=== PATIENT | male | born 1960 | race Caucasian/White ===

== ENCOUNTER → 2020-12-30 07:03 | Outpatient (CLI) | payer OTHER ==
[~2020-12-30 07:03] MED LIST: HYZAAR 50-12.1 UDTAB; LIPITOR40 MG
== END | disposition home or self-care (01) ==
LOC: LAB 07:03
DX: I10 Essential (primary) hypertension (principal)

== ENCOUNTER 2021-01-02 08:00 | Outpatient (CLI) | payer OTHER | END 2021-01-02 08:30 | disposition home or self-care (01) | LOC: PPH VACUNA 08:00 | PROVIDERS: ATTEND Emergency Medicine Pediatric Emergency Medicine | DX: Z23 Encounter for immunization (principal) ==

== ENCOUNTER 2021-07-13 08:00 | Outpatient (CLI) | payer OTHER | END 2021-07-13 08:30 | disposition home or self-care (01) | LOC: PPH VACUNA 08:00 | PROVIDERS: ATTEND Emergency Medicine Pediatric Emergency Medicine | DX: Z23 Encounter for immunization (principal) ==

== ENCOUNTER 2023-02-01 06:39 | Outpatient (CLI) | payer OTHER ==
[2023-02-01 07:23] LABS: CREATININE SERUM 1.21 mg/dL (0.70-1.30)
== END 2023-02-01 06:40 | disposition home or self-care (01) ==
LOC: LAB 06:39
PROVIDERS: ATTEND Urology
DX: R31.0 Gross hematuria (principal)

== ENCOUNTER 2023-02-01 07:03 | Outpatient (CLI) | payer OTHER | END 2023-02-01 07:08 | disposition home or self-care (01) | LOC: TOM 07:03 | PROVIDERS: ATTEND Urology | DX: R31.0 Gross hematuria (principal); N20.0 Calculus of kidney ==

== ENCOUNTER 2023-03-13 21:11 | Emergency (ER) | payer OTHER ==
[~2023-03-13] VITALS: Ht 167.6 cm; Wt 86.2 kg
[2023-03-13] MEDS ORDERED: ZESTRIL20 MG PO (21:22)
[2023-03-14 00:20] LABS: URINE APPEARANCE Clear; URINE BILIRRUBIN Negative (NEGATIVE); URINE BLOOD Negative; URINE COLOR Yellow; URINE GLUCOSE Negative (NEGATIVE); URINE LEUKOCYTE Trace; URINE NITRATE Negative; URINE PROTEIN Negative (NEGATIVE)
[2023-03-14 00:21] LABS: HEMATOCRIT 45.5 % (39.0-48.0); HEMOGLOBIN 15.6 g/dL (13-16.00); MEAN CELL VOLUME 87.8 fL (80.0-100.00); MEAN CORPUSCULAR HEMOGLOBIN 30.1 pg (27.00-32.0); MEAN CORPUSCULAR HGB CONC 34.3 g/dl (32.0-36.0); PLATELET COUNT 169 K/uL (150-450); RED BLOOD COUNT 5.18 M/uL (4.00-6.00); RED CELL DISTRIBUTION WIDTH 13.6 % (11.5-14.5)
[2023-03-14 00:23] LABS: URINE EPITHELIAL CELLS 1.5 uL (0.0-38.8); URINE RBC 14.2 uL (0.0-20.8); URINE WBC 23.1 uL (0.0-23.2)
[2023-03-14 00:33] LABS: ALBUMIN 4.2 gm/dL (3.4-5.0); BILIRUBIN TOTAL 0.68 mg/dL (0.3-1.2); CALCIUM 9.7 mg/dL (8.5-10.1); CREATININE SERUM 1.13 mg/dL (0.70-1.30); GFR 65.33; GLOBULINA 3.3 G/DL (2.4-3.5); POTASSIUM 4.18 mEq/L (3.5-5.1); TOTAL PROTEIN 7.5 gm/dL (6.4-8.2)
== END 2023-03-14 03:38 ==
LOC: ER 21:12
DX: I10 Essential (primary) hypertension (principal)

== ENCOUNTER → 2023-03-20 | Outpatient (CLI) | payer OTHER ==
[~2023-03-20] MED LIST changes: +ZESTRIL20 MG PO
== END | disposition home or self-care (01) ==
LOC: NUCLEAR 11:06
PROVIDERS: ATTEND Internal Medicine
DX: I20.9 Angina pectoris, unspecified (principal)

== ENCOUNTER 2023-04-09 07:21 | Outpatient (CLI) | payer OTHER ==
[2023-04-09 08:25] LABS: CHOL HDL RATIO 3.1 (0-5.0)
== END 2023-04-09 07:22 | disposition home or self-care (01) ==
LOC: LAB 07:21
PROVIDERS: ATTEND Internal Medicine
DX: I11.9 Hypertensive heart disease without heart failure (principal); E78.2 Mixed hyperlipidemia; E11.9 Type 2 diabetes mellitus without complications

== ENCOUNTER 2023-04-19 07:13 | Outpatient (CLI) | payer OTHER | END 2023-04-19 07:21 | disposition home or self-care (01) | LOC: NUCLEAR 07:13 | PROVIDERS: ATTEND Internal Medicine | DX: I20.9 Angina pectoris, unspecified (principal) ==

== ENCOUNTER 2024-03-14 09:59 | Outpatient (CLI) | payer OTHER ==
[2024-03-14 12:09] LABS: HEMATOCRIT 42.8 % (39.0-48.0); HEMOGLOBIN 14.9 g/dL (13-16.00); MEAN CELL VOLUME 87.4 fL (80.0-100.00); MEAN CORPUSCULAR HEMOGLOBIN 30.4 pg (27.00-32.0); MEAN CORPUSCULAR HGB CONC 34.7 g/dl (32.0-36.0); PLATELET COUNT 173 K/uL (150-450); RED CELL DISTRIBUTION WIDTH 13.1 % (11.5-14.5)
[2024-03-14 12:39] LABS: ALBUMIN 4.1 gm/dL (3.4-5.0); BILIRUBIN TOTAL 0.88 mg/dL (0.3-1.2); CALCIUM 9.4 mg/dL (8.5-10.1); CHOL HDL RATIO 3.5 (0-5.0); CREATININE SERUM 1.13 mg/dL (0.70-1.30); GFR 65.13; GLOBULINA 3.3 G/DL (2.4-3.5); POTASSIUM 4.25 mEq/L (3.5-5.1); TOTAL PROTEIN 7.4 gm/dL (6.4-8.2)
== END 2024-03-14 10:00 | disposition home or self-care (01) ==
LOC: LAB 09:59
DX: I11.9 Hypertensive heart disease without heart failure (principal)

== ENCOUNTER → 2024-07-21 07:11 | Outpatient (CLI) | payer OTHER ==
[2024-07-21 08:20] LABS: BILIRUBIN TOTAL 1.11 mg/dL (0.3-1.2); CALCIUM 9.1 mg/dL (8.5-10.1); CREATININE SERUM 1.26 mg/dL (0.70-1.30); GFR 57.44; GLOBULINA 3.2 G/DL (2.4-3.5); POTASSIUM 3.97 mEq/L (3.5-5.1); TOTAL PROTEIN 7.2 gm/dL (6.4-8.2)
[2024-07-21 09:39] LABS: HEMATOCRIT 43.7 % (40.1-51.0); HEMOGLOBIN 15.5 g/dL (13.7-17.5); MEAN CORPUSCULAR HEMOGLOBIN 30.7 pg (25.6-32.2); RED BLOOD COUNT 5.05 M/uL (4.63-6.08); RED CELL DISTRIBUTION WIDTH 12.9 % (11.6-14.4)
[2024-07-21 09:40] LABS: BASO % 0.8 % (0.1-1.2); EOS # 0.14 (0.04-0.54); EOS % 2.7 % (0.7-7.0); LYMPH # 1.39 (1.18-3.74); LYMPH % 26.5 % (19.3-53.1); MONO # 0.45 (0.24-0.82); MONO % 8.6 % (4.7-12.5); NEUT # 3.21 (1.56-6.13); PLATELET COUNT 174 K/uL (163-369)
== END | disposition home or self-care (01) ==
LOC: LAB 07:11
PROVIDERS: ATTEND Internal Medicine
DX: I11.9 Hypertensive heart disease without heart failure (principal); E11.9 Type 2 diabetes mellitus without complications; E78.2 Mixed hyperlipidemia

== ENCOUNTER 2024-12-29 07:15 | Outpatient (CLI) | payer OTHER ==
[2024-12-29 07:56] LABS: BASO % 0.7 % (0.1-1.2); EOS # 0.17 (0.04-0.54); EOS % 2.9 % (0.7-7.0); LYMPH # 1.42 (1.18-3.74); LYMPH % 24.1 % (19.3-53.1); MEAN PLATELET VOLUME 10.70 fl (9.4-12.4); MONO # 0.48 (0.24-0.82); MONO % 8.1 % (4.7-12.5); NEUT # 3.74 (1.56-6.13); NEUT % 63.5 % (34.0-71.1); RED CELL DISTRIBUTION WIDTH 12.6 % (11.6-14.4)
[2024-12-29 08:28] LABS: URINE APPEARANCE Clear; URINE BILIRRUBIN Negative (NEGATIVE); URINE COLOR Yellow; URINE GLUCOSE Negative (NEGATIVE); URINE KETONE Negative (NEGATIVE); URINE LEUKOCYTE Small; URINE NITRATE Negative; URINE PROTEIN 30 (NEGATIVE); URINE UROBILINOGEN 1.0 E.U./dl
[2024-12-29 08:33] LABS: URINE BACTERIA 23.9 uL (0.0-1933); URINE EPITHELIAL CELLS 5.3 uL (0.0-38.8); URINE RBC 20.9 uL (0.0-20.8); URINE WBC 126.8 uL (0.0-23.2)
[2024-12-29 08:39] LABS: URINE BLOOD TRACE; URINE CAST 0.29 uL (0.0-1.40)
[2024-12-29 09:14] LABS: ALT/SGPT 67.0 U/L (12-78); AST/SGOT 35.0 U/L (15-37); BILIRUBIN TOTAL 1.08 mg/dL (0.3-1.2); BUN CREA RATIO 21.0 (7.0-25.0); CHOL HDL RATIO 6.0 (0-5.0); CREATININE SERUM 1.16 mg/dL (0.70-1.30); GFR 62.99; GLOBULINA 3.0 G/DL (2.4-3.5); GLUCOSE FASTING 131.0 mg/dL (65-100); HDL 46.0 mg/dl (40-60); LDL 169.0 mg/dl (0-130); OSMOLALITY SERUM 291.0 MOSM/KG (275-295); PROSTATIC SPECIFIC ANTIGEN 0.695 NG/ML (0.010-4.00); TSH 1.94 uIU/mL (0.358-3.74); VLDL 59.0 (0-39)
== END 2024-12-29 07:29 | disposition home or self-care (01) ==
LOC: LAB 07:15
PROVIDERS: ATTEND Internal Medicine
DX: N40.1 Benign prostatic hyperplasia with lower urinary tract symptoms (principal); I11.9 Hypertensive heart disease without heart failure; E78.1 Pure hyperglyceridemia; E03.9 Hypothyroidism, unspecified